=== PATIENT | female | born 1975 | race Caucasian/White ===

== ENCOUNTER 2022-01-26 21:57 | Emergency (ER) | payer SELFPAY ==
[~2022-01-26] VITALS: Ht 172.7 cm; Wt 87.1 kg
[2022-01-26 23:13] LABS: BASOPHILS # (AUTO) 0.1 K/uL (0.0-0.2); BASOPHILS % (AUTO) 0.5 % (0.0-2.0); EOSINOPHILS # (AUTO) 0.2 K/uL (0.0-0.4); EOSINOPHILS % (AUTO) 1.6 % (0.0-4.0); HEMATOCRIT 40.2 % (36-48); HEMOGLOBIN 13.7 g/dL (12.0-16.0); LYMPHOCYTES % (AUTO) 17.7 % (20.5-51.5); MEAN CORPUSCULAR HEMOGLOBIN 29 pg (27-31); MEAN CORPUSCULAR HGB CONC 34 % (32-36); MEAN CORPUSCULAR VOLUME 85 fL (79.0-98.0); MONOCYTES # (AUTO) 0.8 K/uL (0.0-1.0); MONOCYTES % (AUTO) 7.2 % (1.7-9.3); NEUTROPHILS # (AUTO) 8.3 K/uL (1.8-7.7); PLATELET COUNT (AUTO) 273 K/uL (130-430); RED BLOOD CELL COUNT(AUTO) 4.75 MIL/uL (4.2-6.2); RED CELL DISTRIBUTION WIDTH 13.2 % (9.0-15.0); WHITE BLOOD COUNT (AUTO) 11.4 K/uL (4.8-10.8)
[2022-01-26 23:51] LABS: BILIRUBIN,URINE NEGATIVE (NEGATIVE); BLOOD, URINE 2+ (NEGATIVE); CLARITY/URINE CLEAR (CLEAR); COLOR,URINE YELLOW (YELLOW); GLUCOSE,URINE NEGATIVE (NEGATIVE); KETONES,URINE NEGATIVE (NEGATIVE); LEUKOCYTE ESTERASE ,URINE NEGATIVE (NEGATIVE); NITRITE, URINE NEGATIVE (NEGATIVE); PROTEIN URINE NEGATIVE (NEGATIVE); UROBILINOGEN,URINE 0.2 (0.2-1.0)
[2022-01-27] MEDS ORDERED: KETOROLAC TROMETHAMINE 30 MG VIAL IVP ONE (00:15)
[2022-01-27] MEDS ORDERED: KETOROLAC TROMETHAMINE 30 MG VIAL IM ONE (00:45)
[2022-01-27 01:06] LABS: BACTERIA,URINE FEW /HPF (None Seen)
[2022-01-27 01:07] LABS: MUCUS,URINE None Seen /LPF (None Seen); YEAST,URINE Few /HPF (None Seen)
[2022-01-27] MEDS ORDERED: ONDA-8 TL (01:18)
[2022-01-27] MEDS ORDERED: IBUP-1971 PO (01:18)
[2022-01-27] MEDS ORDERED: OXYC-128 PO (01:18)
[2022-01-27] MEDS ORDERED: TAMS-11 PO (01:20)
[2022-01-27] MEDS ORDERED: NITR-85 PO (01:21)
[2022-01-27 01:40] VITALS: BP_SYST 163
[2022-01-27 01:46] LABS: CREATININE 1.28 mg/dL (0.55-1.30); TOTAL BILIRUBIN 0.3 mg/dL (0.0-1.0)
== END 2022-01-27 01:35 | disposition home or self-care (01) ==
LOC: SED 21:57
DX: N39.0 Urinary tract infection, site not specified (principal); N20.0 Calculus of kidney; R10.31 Right lower quadrant pain; Z88.0 Allergy status to penicillin; Z88.1 Allergy status to other antibiotic agents; Z88.2 Allergy status to sulfonamides; Z79.899 Other long term (current) drug therapy
CPT/HCPCS: 99284; 74176; 80053; 81000; 83690; 85025; 36415; 76376; 81025; 96372; J1885